=== PATIENT | female | born 1960 ===

== ENCOUNTER 2016-10-17 19:53 | Emergency (ER) | payer MEDICAID ==
[2016-10-17 20:06] VITALS: BP 142/76; PULSE 112; RESP 20; TEMP 97.8; O2SAT 98
[2016-10-17] MEDS ORDERED: Sodium Chloride 0.9% 1,000 ML IV STA (20:26)
--- NOTE | 2016-10-17 20:30 | ED PDOC ---
"HPI: Back Time Seen by Provider: 10/17/16 20:18 Chief Complaint (Nursing): Back Pain Chief Complaint (Provider): Back Pain History Per: Patient History/Exam Limitations: no limitations Onset/Duration Of Symptoms: Days (x1 week) Current Symptoms Are (Timing): Still Present Quality Of Discomfort: Other (w/radiation up towards neck, down towards b/l legs and around towards abdomen (right more than left)) Severity: Moderate Previous Symptoms: None Associated Symptoms: Other (dysuria (burning)) Additional Complaint(s): Jeanette Peguero is a 56 year old female, with a past medical history inclusive of HTN, hypercholesterolemia, diabetes, arthritis and chronic back pain, who presents to the ED on 10/17/16 for the evaluation of moderately exacerbated back pain that she has experienced x1 week. Pain, described as radiating up towards her neck, down towards her b/l legs and around towards her abdomen ( right side more than left), has been accompanied by some burning dysuria, though patient denies incontinence, recent trauma or heavy lifting. Has medicated with Advil without relief. PMD: [employer] Past Medical History Reviewed: Historical Data, Nursing Documentation, Vital Signs Vital Signs: Last Vital Signs Temp 97.8 F 10/17/16 20:05 Pulse 112 H 10/17/16 20:05 Resp 20 10/17/16 20:05 BP 142/76 10/17/16 20:05 Pulse Ox 98 10/17/16 20:05 - Medical History PMH: Arthritis, Asthma, Back Problems, Diabetes, HTN, Hypercholesterolemia, Hypothyroidism, Osteoporosis Denies: HIV, Chronic Kidney Disease - Surgical History Surgical History: Hernia Repair (ventral) - Family History Family History: States: Unknown Family Hx - Home Medications Home Medications: Ambulatory Orders Medication Instructions Recorded Aclidinium [place] [Tudorza 1 puff INH Q12 08/27/16 Pressair] Albuterol HFA [Ventolin HFA 90 2 puff INH Q4 PRN 08/27/16 mcg/actuation (8 g)] Alogliptin Roque/Metformin HCl 1 tab PO BID 08/27/16 [Alogliptin-Metformin 12.5-1000] Aspirin [Lo-Dose Aspirin EC] 81 mg PO DAILY 08/27/16 Cholecalciferol [Vitamin D 1000 IU] 50,000 iu PO QWK 08/27/16 Cilostazol [Pletal] 100 mg PO BID 08/27/16 DiphenhydrAMINE [Benadryl] 25 mg PO Q12 08/27/16 Fexofenadine HCl [Leyda NF] 180 mg PO QAM 08/27/16 Fluticasone/Salmeterol 500/50 1 puff INH BID 08/27/16 [Advair Diskus 500/50] Glimepiride [Amaryl] 4 mg pe PO BID 08/27/16 Levothyroxine [Synthroid] 100 mcg PO DAILY 08/27/16 Lisinopril/Hydrochlorothiazide 1 tab PO DAILY 08/27/16 [Lisinopril-Hctz 20-25 mg Tab] Lovastatin [Altoprev] 40 mg PO DAILY 08/27/16 Metoprolol Tartrate 25 mg PO DAILY 08/27/16 Montelukast Sodium [Singulair] 10 mg PO DAILY 08/27/16 Omeprazole 40 mg PO DAILY 08/27/16 Levalbuterol [Xopenex] 0.63 mg IH RQ8 #60 neb 09/01/16 guaiFENesin [Robitussin] 200 mg PO Q4 PRN #30 udc 09/01/16 predniSONE [predniSONE Tab] 20 mg PO Q12 #30 tab 09/01/16 Cyclobenzaprine [Cyclobenzaprine 10 mg PO BID #14 tab 10/17/16 HCl] Ibuprofen [Motrin] 400 mg PO Q6 #30 tab 10/17/16 - Allergies Allergies/Adverse Reactions: Allergies Allergy/AdvReac Type Severity Reaction Status Date / Time iodine Allergy RASH Verified 10/17/16 20:10 Penicillins Allergy RASH Verified 10/17/16 20:10 Review of Systems Musculoskeletal: Positive for: Back Pain (w/radiation to neck/bilateral legs and anteriorly towards abdomen) Physical Exam - Reviewed Nursing Documentation Reviewed: Yes Vital Signs Reviewed: Yes - Physical Exam Appears: Positive for: Non-toxic, No Acute Distress Head Exam: Positive for: ATRAUMATIC, NORMOCEPHALIC Skin: Positive for: Normal Color, Warm, Dry Eye Exam: Positive for: Normal appearance, PERRL Neck: Positive for: Normal, Painless ROM, Supple Cardiovascular/Chest: Positive for: Regular Rate, Rhythm. Negative for: Murmur Respiratory: Positive for: Normal Breath Sounds. Negative for: Respiratory Distress Gastrointestinal/Abdominal: Positive for: Normal Exam, Soft. Negative for: Tenderness Back: Positive for: L CVA Tenderness, R CVA Tenderness, Vertebral Tenderness ( midline sacral tenderness) Neurologic/Psych: Positive for: Alert, Oriented - Laboratory Results Urine POC: Negative Urine dip results: Positive for: Leukocyte Esterase, Protein - ECG O2 Sat by Pulse Oximetry: 98 Medical Decision Making Medical Decision Makin:18 Initial Impression: back pain, dysuria Initial Plan: * CT A/P w/o PO or IV contrast * Udip * Urinalysis * IV NS 1000ml at 1000mls/hr * Toradol 30mg IVP * Reevaluation * Ct scan:NAD FINDINGS: Anterior hernia mesh in the abdomen and pelvis. The liver, spleen, gallbladder and pancreas appear grossly normal on this non- contrast study. 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 No perinephric stranding. No hydronephrosis. No obstructing calculi. Pelvic phleboliths. Small hiatal hernia. Colonic diverticulosis. A normal appendix is identified axial images 92 through 107, coronal images 47 through 64. Hysterectomy. JEANETTE PEGUERO | Final Radiology Report CONFIDENTIALITY STATEMENT This report is intended only for use by the referring physician, and only in accordance with law. If you received this in error, call [phone]. Page 2 of 2 IMPRESSION: No acute findings. dx: MSK/sciatica tx: flexril/motrin plan: PTx and f/u wtih pmd with exercises. Scribe Attestation: Documented by Esthela Gann, acting as a scribe for Angela Tim PA-C. Provider Scribe Attestation: All medical record entries made by the Scribe were at my direction and personally dictated by me. I have reviewed the chart and agree that the record accurately reflects my personal performance of the history, physical exam, medical decision making, and the department course for this patient. I have also personally directed, reviewed, and agree with the discharge instructions and disposition. Disposition - Clinical Impression Clinical Impression: Back pain - Patient ED Disposition Is Patient to be Admitted: No Counseled Patient/Family Regarding: Studies Performed, Diagnosis, Need For Followup, Rx Given - Disposition Disposition: Routine/Home Disposition Time: 22:57 Condition: STABLE Prescriptions: Cyclobenzaprine [Cyclobenzaprine HCl] 10 mg PO BID #14 tab Ibuprofen [Motrin] 400 mg PO Q6 #30 tab Instructions: Sciatica (ED), Back Exercises (ED) Print Language: CZECH"
[2016-10-17 21:17] LABS: RBC URINE 2 /hpf (0-3); URINE BACTERIA RARE (<OCC); URINE BILIRUBIN NEGATIVE (NEGATIVE); URINE BLOOD NEGATIVE (NEGATIVE); URINE COLOR YELLOW (YELLOW); URINE GLUCOSE (UA) 150 mg/dL (Normal); URINE KETONE NEGATIVE (NEGATIVE); URINE PROTEIN NEGATIVE (NEGATIVE); URINE UROBILINOGEN 0.2-1.0 mg/dL (0.2-1.0); WBC URINE 6 /hpf (0-5)
[2016-10-17 21:27] LABS: URINE LEUKOCYTE ESTERASE MOD Leu/uL (Negative)
--- NOTE | 2016-10-17 22:46 | CT ---
EXAM: CT Abdomen and Pelvis Without Intravenous Contrast. CLINICAL HISTORY: 56 years old, female; Pain; Abdominal pain; Flank; Right; Prior surgery; Surgery date: 6+ months; Surgery type: Hysterectomy. Hernia surgery; Additional info: CVA tenderness TECHNIQUE: Axial computed tomography images of the abdomen and pelvis without intravenous contrast. This CT exam was performed using one or more of the following dose reduction techniques: automated exposure control, adjustment of the mA and/or kV according to patient size, and/or use of iterative reconstruction technique. Coronal and sagittal reformatted images were created and reviewed. EXAM DATE/TIME: 10/17/2016 8:40 PM COMPARISON: CT - ABD PELVIS W/O PO OR IV CONT 09/13/2014 1:18:03 PM FINDINGS: Anterior hernia mesh in the abdomen and pelvis. The liver, spleen, gallbladder and pancreas appear grossly normal on this non-contrast study. 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 No perinephric stranding. No hydronephrosis. No obstructing calculi. Pelvic phleboliths. Small hiatal hernia. Colonic diverticulosis. A normal appendix is identified axial images 92 through 107, coronal images 47 through 64. Hysterectomy. IMPRESSION: No acute findings.
== END 2016-10-17 23:24 | disposition home or self-care (01) ==
LOC: H.ER 19:53
DX: R10.9 Unspecified abdominal pain (principal); M54.9 Dorsalgia, unspecified

== ENCOUNTER 2016-12-03 10:26 | Emergency (ER) | payer MEDICARE, MEDICAID ==
[2016-12-03 10:33] VITALS: RESP 18; O2SAT 97; BMI 40.8
[2016-12-03 11:05] LABS: BASO # 0.1 K/uL (0.0-0.2); BASO % 0.8 % (0.0-2.0); EOS # 0.4 K/uL (0.0-0.7); EOS % 4.2 % (0.0-4.0); HEMATOCRIT 35.7 % (34.0-47.0); LYMPH # 2.4 K/uL (1.0-4.3); LYMPH % 28.4 % (20.0-40.0); MEAN CORPUSCULAR HEMOGLOBIN 28.1 pg (27.0-31.0); MEAN PLATELET VOLUME 10.1 fl (7.2-11.7); MONO # 0.4 K/uL (0.0-0.8); MONO % 5.1 % (0.0-10.0); NEUT # 5.3 K/uL (1.8-7.0); NEUT % 61.5 % (50.0-75.0); NRBC % 0.1 % (0.0-0.0); RED CELL DISTRIBUTION WIDTH 14.8 % (11.5-14.5); WHITE BLOOD COUNT 8.5 K/uL (4.8-10.8)
[2016-12-03 11:07] VITALS: TEMP 98
[2016-12-03 11:19] LABS: RBC URINE 1 /hpf (0-3); URINE BACTERIA RARE (<OCC); URINE BILIRUBIN NEGATIVE (NEGATIVE); URINE BLOOD NEGATIVE (NEGATIVE); URINE COLOR YELLOW (YELLOW); URINE GLUCOSE (UA) >=500 mg/dL (Normal); URINE KETONE NEGATIVE (NEGATIVE); URINE LEUKOCYTE ESTERASE SMALL Leu/uL (Negative); URINE PROTEIN NEGATIVE (NEGATIVE); URINE UROBILINOGEN 0.2-1.0 mg/dL (0.2-1.0); WBC URINE 3 /hpf (0-5)
[2016-12-03 11:48] LABS: ALB/GLOB RATIO 1.2 (1.0-2.1); BILIRUBIN,TOTAL 0.3 mg/dl (0.2-1.3); CALCIUM 9.8 mg/dL (8.4-10.2); POTASSIUM 4.6 MMOL/L (3.6-5.0); TOTAL PROTEIN 8.2 G/DL (6.3-8.2)
[2016-12-03] MEDS ORDERED: Sodium Chloride 0.9% 1,000 ML IV STA (11:55)
--- NOTE | 2016-12-03 12:30 | CT ---
PROCEDURE: CT Abdomen and Pelvis without intravenous contrast HISTORY: mid abd pain obstipation distension vomiting COMPARISON: None. TECHNIQUE: Unenhanced study. Neither oral nor intravenous contrast administered. Radiation dose: Total exam DLP = 1007.22 mGy-cm. This CT exam was performed using one or more of the following dose reduction techniques: Automated exposure control, adjustment of the mA and/or kV according to patient size, and/or use of iterative reconstruction technique. FINDINGS: LOWER THORAX: Unremarkable. LIVER: Hepatic steatosis. No focal masses. No intrahepatic bile duct dilatation or perihepatic ascites. GALLBLADDER AND BILE DUCTS: Unremarkable. PANCREAS: Unremarkable. No gross lesion or ductal dilatation. SPLEEN: Unremarkable. ADRENALS: Unremarkable. No mass. KIDNEYS AND URETERS: Unremarkable. No hydronephrosis. No solid mass. Incidental finding(s): Left main renal artery aneurysm. VASCULATURE: Unremarkable. No aortic aneurysm. BOWEL: Constipation without fecal impaction or obstruction. Diverticulosis without an acute inflammatory component or other associated pathologic process. APPENDIX: Unremarkable. Normal appendix. PERITONEUM: Unremarkable. No free fluid. No free air. LYMPH NODES: Unremarkable. No enlarged lymph nodes. BLADDER: Unremarkable. REPRODUCTIVE: Unremarkable. BONES: No acute fracture. OTHER FINDINGS: Stable position of anterior abdominal wall mesh. IMPRESSION: No acute findings related to/accounting for the clinical presentation. Additional benign and/or incidental findings described above. No significant interval change compared to the prior examination(s).
--- NOTE | 2016-12-03 13:53 | ED PDOC ---
HPI: Abdomen Time Seen by Provider: 12/03/16 10:36 Chief Complaint (Nursing): Abdominal Pain Chief Complaint (Provider): abdominal pain History Per: Patient History/Exam Limitations: no limitations Onset/Duration Of Symptoms: Days (7), Intermittent Episodes Current Symptoms Are (Timing): Intermittent Episodes Severity: None Location Of Pain/Discomfort: Diffuse Quality Of Discomfort: Sharp, Cramping Associated Symptoms: Nausea, Loss Of Appetite, Constipation. denies: Vomiting, Diarrhea, Back Pain, Urinary Symptoms Exacerbating Factors: None Alleviating Factors: None Last Bowel Movement: Today (small) Additional Complaint(s): 56yo female c/o mid and lower abd pain radiating to epigastrum associated w nausea and constipation. She used an enema yesterday w minimal relief. Has had intermittent abd pain for many months. Denies fever, weakness or urinary symptoms. Thinks she had colonoscopy 10 years ago, unknown results, had endoscopy scheduled but was cancelled. Abnormal Vaginal Bleeding: No Past Medical History Reviewed: Historical Data, Nursing Documentation, Vital Signs Vital Signs: Last Vital Signs Temp 98 F 12/03/16 11:00 Pulse 76 12/03/16 11:00 Resp 18 12/03/16 11:00 BP 131/69 12/03/16 11:00 Pulse Ox 97 12/03/16 11:00 - Medical History PMH: Arthritis, Asthma, Back Problems, Diabetes, HTN, Hypercholesterolemia, Hypothyroidism, Osteoporosis Denies: HIV, Chronic Kidney Disease - Surgical History Surgical History: Hernia Repair (ventral) Other surgeries: bladder sx - Family History Family History: States: Unknown Family Hx - Living Arrangements Living Arrangements: With Family - Social History Current smoker - smoking cessation education provided: No - Home Medications Home Medications: Ambulatory Orders Medication Instructions Recorded Aclidinium [place] [Tudorza 1 puff INH Q12 08/27/16 Pressair] Albuterol HFA [Ventolin HFA 90 2 puff INH Q4 PRN 08/27/16 mcg/actuation (8 g)] Alogliptin Roque/Metformin HCl 1 tab PO BID 08/27/16 [Alogliptin-Metformin 12.5-1000] Aspirin [Lo-Dose Aspirin EC] 81 mg PO DAILY 08/27/16 Cholecalciferol [Vitamin D 1000 IU] 50,000 iu PO QWK 08/27/16 Cilostazol [Pletal] 100 mg PO BID 08/27/16 DiphenhydrAMINE [Benadryl] 25 mg PO Q12 08/27/16 Fexofenadine HCl [Leyda NF] 180 mg PO QAM 08/27/16 Fluticasone/Salmeterol 500/50 1 puff INH BID 08/27/16 [Advair Diskus 500/50] Glimepiride [Amaryl] 4 mg pe PO BID 08/27/16 Levothyroxine [Synthroid] 100 mcg PO DAILY 08/27/16 Lisinopril/Hydrochlorothiazide 1 tab PO DAILY 08/27/16 [Lisinopril-Hctz 20-25 mg Tab] Lovastatin [Altoprev] 40 mg PO DAILY 08/27/16 Metoprolol Tartrate 25 mg PO DAILY 08/27/16 Montelukast Sodium [Singulair] 10 mg PO DAILY 08/27/16 Omeprazole 40 mg PO DAILY 08/27/16 Levalbuterol [Xopenex] 0.63 mg IH RQ8 #60 neb 09/01/16 guaiFENesin [Robitussin] 200 mg PO Q4 PRN #30 udc 09/01/16 predniSONE [predniSONE Tab] 20 mg PO Q12 #30 tab 09/01/16 Cyclobenzaprine [Cyclobenzaprine 10 mg PO BID #14 tab 10/17/16 HCl] Ibuprofen [Motrin] 400 mg PO Q6 #30 tab 10/17/16 - Allergies Allergies/Adverse Reactions: Allergies Allergy/AdvReac Type Severity Reaction Status Date / Time iodine Allergy RASH Verified 10/17/16 20:10 Penicillins Allergy RASH Verified 10/17/16 20:10 Review of Systems ROS Statement: Except As Marked, All Systems Reviewed And Found Negative Constitutional: Negative for: Fever ENT: Negative for: Ear Pain Cardiovascular: Negative for: Chest Pain, Palpitations Gastrointestinal: Positive for: Abdominal Pain, Constipation. Negative for: Nausea, Vomiting Genitourinary Female: Negative for: Dysuria Musculoskeletal: Negative for: Neck Pain, Back Pain, Leg Pain Skin: Negative for: Rash, Lesions Neurological: Negative for: Weakness, Numbness, Dizziness Physical Exam - Reviewed Nursing Documentation Reviewed: Yes - Physical Exam Appears: Positive for: Well, Non-toxic, No Acute Distress Head Exam: Positive for: ATRAUMATIC, NORMAL INSPECTION, NORMOCEPHALIC Skin: Positive for: Normal Color, Warm, DRY Eye Exam: Positive for: EOMI, Normal appearance, PERRL ENT: Positive for: Normal ENT Inspection Neck: Positive for: Normal, Painless ROM Cardiovascular/Chest: Positive for: Regular Rate, Rhythm Respiratory: Positive for: CNT, Normal Breath Sounds Gastrointestinal/Abdominal: Positive for: Bowel Sounds, Soft, Tenderness (mild diffuse tenderness) Back: Positive for: Normal Inspection Extremity: Positive for: Normal ROM Neurologic/Psych: Positive for: Alert, Oriented - Laboratory Results Result Diagrams: 12/03/16 11:00 12/03/16 11:00 - ECG O2 Sat by Pulse Oximetry: 97 Medical Decision Making Medical Decision Making: workup initiated for abd pain w labwork and CT abd pelv r.o obstruction, colitis , malignancy given history. - labs reviewed and clinically unremarkable CT imaging report reviewed. Accession No. : [id number] Patient Name / ID : SUDHIR HOLBROOK / [id number] Exam Date : 12/03/2016 12:01:44 ( Approved ) Study Comment : Sex / Age : F / 56Y Creator : Clifford Pal MD Dictator : Clifford Pal MD Buffing Line Set Up Worker : Chancery Clerk : Clifford Pal MD Approver2 : Report Date : 12/03/2016 12:28:53 My Comment : PROCEDURE: CT Abdomen and Pelvis without intravenous contrast HISTORY: mid abd pain obstipation distension vomiting COMPARISON: None. TECHNIQUE: Unenhanced study. Neither oral nor intravenous contrast administered. Radiation dose: Total exam DLP = 1007.22 mGy-cm. This CT exam was performed using one or more of the following dose reduction techniques: Automated exposure control, adjustment of the mA and/or kV according to patient size, and/or use of iterative reconstruction technique. FINDINGS: LOWER THORAX: Unremarkable. LIVER: Hepatic steatosis. No focal masses. No intrahepatic bile duct dilatation or perihepatic ascites. GALLBLADDER AND BILE DUCTS: Unremarkable. PANCREAS: Unremarkable. No gross lesion or ductal dilatation. SPLEEN: Unremarkable. ADRENALS: Unremarkable. No mass. KIDNEYS AND URETERS: Unremarkable. No hydronephrosis. No solid mass. Incidental finding(s): Left main renal artery aneurysm. VASCULATURE: Unremarkable. No aortic aneurysm. BOWEL: Constipation without fecal impaction or obstruction. Diverticulosis without an acute inflammatory component or other associated pathologic process. APPENDIX: Unremarkable. Normal appendix. PERITONEUM: Unremarkable. No free fluid. No free air. LYMPH NODES: Unremarkable. No enlarged lymph nodes. BLADDER: Unremarkable. REPRODUCTIVE: Unremarkable. BONES: No acute fracture. OTHER FINDINGS: Stable position of anterior abdominal wall mesh. IMPRESSION: No acute findings related to/accounting for the clinical presentation. Additional benign and/or incidental findings described above. No significant interval change compared to the prior examination(s). ------- DC w cathartics and mandatory followup GI Pt improved in ED, no vomiting, pain mostly resolved. Disposition - Clinical Impression Clinical Impression: Abdominal pain, Constipation - Patient ED Disposition Is Patient to be Admitted: No Counseled Patient/Family Regarding: Studies Performed, Diagnosis, Need For Followup, Rx Given - Disposition Referrals: Papito Hong MD, PhD [Staff Provider] - Disposition: Routine/Home Disposition Time: 14:02 Additional Instructions: Take medications as directed. See GI doctor as directed for further testing.
[2016-12-03 15:03] VITALS: BP 128/70; PULSE 70
== END 2016-12-03 15:00 | disposition home or self-care (01) ==
LOC: H.ER 10:26
DX: R10.9 Unspecified abdominal pain (principal); K59.00 Constipation, unspecified; R11.10 Vomiting, unspecified
CPT/HCPCS: 74176; 80053; 81003; 83690; 85025; 96374; 96375; 99283; J1885; J2405; J7040

== ENCOUNTER 2017-03-21 05:51 | Emergency (ER) | payer MEDICARE, OTHER ==
[2017-03-21 05:51] VITALS: BMI 40.8
[2017-03-21 06:12] VITALS: BP 160/92; PULSE 88; RESP 18; TEMP 98.5; O2SAT 98
--- NOTE | 2017-03-21 06:35 | ED PDOC ---
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 Pain is rated 10/10; is worse with movement of the hand, forearm, or shoulder; and was not relieved with Tylenol #3 that she had on hand from a dental procedure. Pain is located in the hand, wrist, and elbow; and radiates into the left chest and back. No fever, chilld, nausea, vomiting, diaphoresis, or shortness of breath. No other complaints at this time. Past Medical History Vital Signs: Last Vital Signs Temp 98.5 F 03/21/17 06:08 Pulse 88 03/21/17 06:08 Resp 18 03/21/17 06:08 BP 160/92 H 03/21/17 06:08 Pulse Ox 98 03/21/17 06:08 - Medical History PMH: Arthritis, Asthma, Back Problems, Diabetes, HTN, Hypercholesterolemia, Hyperthyroidism, Hypothyroidism, Osteoporosis, Sleep Apnea (USES C-PAP OCCASSIONALLY) Denies: Colonic Polyps, Fractures, HIV, Chronic Kidney Disease, TIA - Surgical History Surgical History: No Surg Hx, Hernia Repair (ventral) Denies: Endoscopy - Family History Family History: States: Unknown Family Hx - Social History Current smoker - smoking cessation education provided: No Ex-Smoker (has not smoked in the last 12 months): No Alcohol: None Drugs: Denies - Home Medications Home Medications: Ambulatory Orders Medication Instructions Recorded Aclidinium [place] [Tudorza 1 puff INH Q12 08/27/16 Pressair] Albuterol HFA [Ventolin HFA 90 2 puff INH Q4 PRN 08/27/16 mcg/actuation (8 g)] Aspirin [Lo-Dose Aspirin EC] 81 mg PO DAILY 08/27/16 Cilostazol [Pletal] 100 mg PO BID 08/27/16 DiphenhydrAMINE [Benadryl] 25 mg PO Q12 08/27/16 Glimepiride [Amaryl] 4 mg pe PO BID 08/27/16 Lisinopril/Hydrochlorothiazide 1 tab PO DAILY 08/27/16 [Lisinopril-Hctz 20-25 mg Tab] Lovastatin [Altoprev] 40 mg PO DAILY 08/27/16 Metoprolol Tartrate 25 mg PO DAILY 08/27/16 Montelukast Sodium [Singulair] 10 mg PO DAILY 08/27/16 Omeprazole 40 mg PO DAILY 08/27/16 Levalbuterol [Xopenex] 0.63 mg IH RQ8 #60 neb 09/01/16 Dicyclomine [Dicyclomine HCl] 10 mg PO TID PRN #12 12/03/16 Azithromycin 250 mg PO DAILY 01/22/17 Clotrimazole 1% [Lotrimin AF 1%] 1 appl TOP BID 01/22/17 Clotrimazole/Betamethasone 1 appl TOP BID 01/22/17 [Lotrisone] Empagliflozin [Jardiance] 25 mg PO DAILY 01/22/17 Ergocalciferol (Vitamin D2) 50,000 iu PO QWK 01/22/17 [Vitamin D2] Insulin Glargine, Recombina 10 unit SUBCUT BID 01/22/17 [Lantus] Ketoconazole 2% Cr [Nizoral] 1 appl TOP BID 01/22/17 MetFORMIN [glucoPHAGE] 1,000 mg PO BID 01/22/17 Metoclopramide [Reglan] 5 mg PO TID 01/22/17 Naproxen [Naprosyn] 500 mg PO Q12H #20 tab 03/21/17 traMADol [Ultram] 50 mg PO Q8 #10 tab 03/21/17 - Allergies Allergies/Adverse Reactions: Allergies Allergy/AdvReac Type Severity Reaction Status Date / Time iodine Allergy RASH Verified 01/22/17 07:40 Penicillins Allergy RASH Verified 01/22/17 07:40 Review of Systems ROS Statement: Except As Marked, All Systems Reviewed And Found Negative Cardiovascular: Positive for: Chest Pain Musculoskeletal: Positive for: Arm Pain, Back Pain Physical Exam - Reviewed Nursing Documentation Reviewed: Yes Vital Signs Reviewed: Yes - Physical Exam Appears: Positive for: Non-toxic, Uncomfortable Head Exam: Positive for: ATRAUMATIC, NORMAL INSPECTION, NORMOCEPHALIC Skin: Positive for: Normal Color, Warm, DRY Eye Exam: Positive for: EOMI, Normal appearance, PERRL ENT: Positive for: Normal ENT Inspection Neck: Positive for: Normal, Painless ROM Cardiovascular/Chest: Positive for: Regular Rate, Rhythm Respiratory: Positive for: CNT, Normal Breath Sounds Pulses-Radial (L): 2+ Pulses-Radial (R): 2+ Gastrointestinal/Abdominal: Positive for: Normal Exam, Bowel Sounds, Soft Back: Positive for: Normal Inspection Extremity: Positive for: Normal ROM, Tenderness (exquisite tenderness at the left hand, wrist and elbow), Capillary Refill (less than 2 seconds). Negative for: Deformity Neurologic/Psych: Positive for: Alert, Oriented - Laboratory Results Result Diagrams: 03/21/17 06:56 03/21/17 06:56 - ECG O2 Sat by Pulse Oximetry: 98 (RA) Pulse Ox Interpretation: Normal Medical Decision Making Medical Decision Making: Impression: 57 y/o female with known history of HTN, DM, and Neuropathy here with left upper extremity pain. Plan: - Labs - EKG - XR - IV Morphine trial 07:00: patient signed out to Dr. Munson pending results and disposition. Scribe Attestation Documented by Malaika Leung acting as a scribe for Ahsan Forde MD. Provider Attestation: All medical record entries made by the Scribe were at my direction and personally dictated by me. I have reviewed the chart and agree that the record accurately reflects my personal performance of the history, physical exam, medical decision making, and the department course for this patient. I have also personally directed, reviewed, and agree with the discharge instructions and disposition. Disposition - Clinical Impression Clinical Impression: Arm pain - Disposition Referrals: [facility] [Outside] Disposition: Transfer of Care Disposition Time: 07:00 Condition: FAIR Prescriptions: Naproxen [Naprosyn] 500 mg PO Q12H #20 tab traMADol [Ultram] 50 mg PO Q8 #10 tab Instructions: Arm Pain (ED) Forms: [employer] (Macedonian) Patient Signed Over To: Ravi Munson
[2017-03-21 07:06] LABS: BASO # 0.1 K/uL (0.0-0.2); BASO % 0.6 % (0.0-2.0); EOS # 0.2 K/uL (0.0-0.7); EOS % 2.7 % (0.0-4.0); HEMATOCRIT 35.8 % (34.0-47.0); LYMPH # 2.4 K/uL (1.0-4.3); LYMPH % 26.2 % (20.0-40.0); MEAN CELL VOLUME 87.1 fl (81.0-99.0); MEAN CORPUSCULAR HEMOGLOBIN 28.7 pg (27.0-31.0); MEAN PLATELET VOLUME 9.6 fl (7.2-11.7); MONO # 0.7 K/uL (0.0-0.8); MONO % 7.1 % (0.0-10.0); NEUT # 5.9 K/uL (1.8-7.0); NEUT % 63.4 % (50.0-75.0); NRBC % 0.1 % (0.0-0.0); RED CELL DISTRIBUTION WIDTH 15.5 % (11.5-14.5); WHITE BLOOD COUNT 9.3 K/uL (4.8-10.8)
[2017-03-21 07:15] LABS: ALB/GLOB RATIO 1.3 (1.0-2.1); ALKALINE PHOSPHATASE 64 U/L (38-126); ALT/SGPT 21 U/L (9-52); AST/SGOT 17 U/L (14-36); BILIRUBIN,TOTAL 0.4 mg/dl (0.2-1.3); BLOOD UREA NITROGEN 18 mg/dl (7-17); CALCIUM 9.8 mg/dL (8.4-10.2); CARBON DIOXIDE 27 mmol/L (22-30); CHLORIDE 100 mmol/L (98-107); GFR AFRICAN-AMERICAN > 60; GLUCOSE,RANDOM 273 mg/dL (65-105); POTASSIUM 4.6 MMOL/L (3.6-5.0); SODIUM 137 mmol/l (132-148); TOTAL PROTEIN 7.8 G/DL (6.3-8.2)
[2017-03-21 07:16] LABS: PARTIAL THROMBOPLASTIN TIME 30.1 Seconds (25.6-37.1)
--- NOTE | 2017-03-21 07:41 | ED PDOC ---
- Laboratory Results Result Diagrams: 03/21/17 06:56 03/21/17 06:56 - ECG O2 Sat by Pulse Oximetry: 98 (RA) Pulse Ox Interpretation: Normal Medical Decision Making Medical Decision Making: Time: 07:00 --Patient endorsed from Dr. Forde to me. --Pending results, reassessment, and disposition. Scribe Attestation: Documented by Hannah Aguilar, acting as a scribe for Ravi Munson MD. Provider Scribe Attestation: All medical record entries made by the Scribe were at my direction and personally dictated by me. I have reviewed the chart and agree that the record accurately reflects my personal performance of the history, physical exam, medical decision making, and the department course for this patient. I have also personally directed, reviewed, and agree with the discharge instructions and disposition. Disposition - Clinical Impression Clinical Impression: Arm pain - POA Present On Arrival: None - Disposition Referrals: [facility] [Outside] Disposition: Routine/Home Disposition Time: 07:50 Condition: FAIR Prescriptions: Naproxen [Naprosyn] 500 mg PO Q12H #20 tab traMADol [Ultram] 50 mg PO Q8 #10 tab Instructions: Arm Pain (ED) Forms: [employer] (Frisian)
--- NOTE | 2017-03-21 08:48 | RAD ---
HISTORY: COMPARISON: 08/27/2016 TECHNIQUE: Chest PA and lateral FINDINGS: LINES AND TUBES: None. LUNG AND PLEURA: The lungs are well inflated. There is bibasilar atelectasis. No focal consolidation. HEART AND MEDIASTINUM: The heart is not enlarged. The hilar and mediastinal contours are within normal limits. SKELETAL STRUCTURES: The bony structures are within normal limits for the patient's age. VISUALIZED UPPER ABDOMEN: Normal. OTHER FINDINGS: None. IMPRESSION: No active pulmonary disease.
--- NOTE | 2017-03-21 09:20 | RAD ---
PROCEDURE: Radiographs of the Left Shoulder HISTORY: Pain COMPARISON: No prior. FINDINGS: BONES: There is no acute displaced fracture or bone destruction. Bone alignment and mineralization are normal. JOINTS: There is mild degenerative osteoarthrosis in the glenohumeral joint. The acromioclavicular joint is normal. SOFT TISSUES: There are discrete calcifications lateral to the humeral head. OTHER FINDINGS: None. IMPRESSION: 1. Calcific tendinitis. 2. Mild degenerative osteoarthrosis in the glenohumeral joint
--- NOTE | 2017-03-21 09:22 | RAD ---
PROCEDURE: Radiographs of the Left Forearm HISTORY: pain COMPARISON: None available. TECHNIQUE: Frontal and lateral views obtained. FINDINGS: BONES: No acute fracture or destructive lesion. JOINT SPACES: Unremarkable. OTHER FINDINGS: None. IMPRESSION: No acute fracture or dislocation.
--- NOTE | 2017-03-21 09:26 | RAD ---
PROCEDURE: Radiographs of the left elbow. HISTORY: pain COMPARISON: No prior. FINDINGS: BONES: Bone alignment and mineralization are normal. There are small or ossific densities in the proximal radius. JOINTS: Normal. No osteoarthritis. SOFT TISSUES: Normal. JOINT EFFUSION: None. OTHER FINDINGS: None IMPRESSION: Small ossific densities in the proximal radius could represent avulsion fracture. Please correlate with point tenderness.
--- NOTE | 2017-03-23 11:10 | CARD ---
APPROVED REPORT EKG Measurement Heart [id number] <Conclusion> Sinus rhythm with marked sinus arrhythmia Low voltage QRS Borderline ECG
== END 2017-03-21 08:07 | disposition home or self-care (01) ==
LOC: H.ER 05:51
DX: M79.602 Pain in left arm (principal); M19.012 Primary osteoarthritis, left shoulder; E05.90 Thyrotoxicosis, unspecified without thyrotoxic crisis or storm; E11.40 Type 2 diabetes mellitus with diabetic neuropathy, unspecified; I10 Essential (primary) hypertension; Z79.4 Long term (current) use of insulin; Z79.82 Long term (current) use of aspirin; Z79.84 Long term (current) use of oral hypoglycemic drugs; Z88.0 Allergy status to penicillin
CPT/HCPCS: 71020; 73030; 73070; 73090; 80053; 82948; 84484; 85025; 85610; 85730; 93005; 96374; 99284; J2270

== ENCOUNTER 2017-07-01 17:00 | Emergency (ER) | payer MEDICARE, OTHER ==
[2017-07-01 17:00] VITALS: BMI 40.8
[2017-07-01 17:06] VITALS: RESP 24
[2017-07-01 17:08] VITALS: BP 119/61; PULSE 97; TEMP 97.6; O2SAT 98
--- NOTE | 2017-07-01 17:46 | ED PDOC ---
HPI: SOB/CHF/COPD Time Seen by Provider: 07/01/17 17:10 Chief Complaint (Nursing): Shortness Of Breath Chief Complaint (Provider): shortness of breath History Per: Patient Additional Complaint(s): 57-year-old female with history of asthma presents to emergency department with shortness of breath and cough that started yesterday. Patient was seen earlier today by primary doctor, Dr. De Anda and he sent patient to ER for further evaluation. Patient states that albuterol pump has not helped her symptoms. She has chills and body aches as well. Denies recent travel or known sick contacts. Past Medical History Reviewed: Historical Data, Nursing Documentation, Vital Signs Vital Signs: Last Vital Signs Temp 97.6 F 07/01/17 17:07 Pulse 97 H 07/01/17 17:07 Resp 24 07/01/17 17:07 BP 119/61 07/01/17 17:07 Pulse Ox 98 07/01/17 17:48 - Medical History PMH: Arthritis, Asthma, Back Problems, Diabetes, HTN, Hypercholesterolemia, Hypothyroidism, Osteoporosis, Sleep Apnea (USES C-PAP OCCASSIONALLY) - Surgical History Surgical History: Hernia Repair (ventral) Other surgeries: bladder suspension, tubal ligation, oral surgery, cyst removal from left jaw region - Family History Family History: States: No Known Family Hx - Living Arrangements Living Arrangements: With Family - Social History Current smoker - smoking cessation education provided: No Alcohol: Occasional Drugs: Denies - Home Medications Home Medications: Ambulatory Orders Medication Instructions Recorded Aclidinium [place] [Tudorza 1 puff INH Q12 08/27/16 Pressair] Albuterol HFA [Ventolin HFA 90 2 puff INH Q4 PRN 08/27/16 mcg/actuation (8 g)] Aspirin [Lo-Dose Aspirin EC] 81 mg PO DAILY 08/27/16 Cilostazol [Pletal] 100 mg PO BID 08/27/16 DiphenhydrAMINE [Benadryl] 25 mg PO Q12 08/27/16 Glimepiride [Amaryl] 4 mg pe PO BID 08/27/16 Lisinopril/Hydrochlorothiazide 1 tab PO DAILY 08/27/16 [Lisinopril-Hctz 20-25 mg Tab] Lovastatin [Altoprev] 40 mg PO DAILY 02/01/17 Metoprolol Tartrate 25 mg PO DAILY 08/27/16 Montelukast Sodium [Singulair] 10 mg PO DAILY 08/27/16 Omeprazole 40 mg PO DAILY 08/27/16 Levalbuterol [Xopenex] 0.63 mg IH RQ8 #60 neb 09/01/16 Dicyclomine [Dicyclomine HCl] 10 mg PO TID PRN #12 12/03/16 Azithromycin 250 mg PO DAILY 01/22/17 Clotrimazole 1% [Lotrimin AF 1%] 1 appl TOP BID 01/22/17 Clotrimazole/Betamethasone 1 appl TOP BID 01/22/17 [Lotrisone] Empagliflozin [Jardiance] 25 mg PO DAILY 01/22/17 Ergocalciferol (Vitamin D2) 50,000 iu PO QWK 01/22/17 [Vitamin D2] Insulin Glargine, Recombina 10 unit SUBCUT BID 01/22/17 [Lantus] Ketoconazole 2% Cr [Nizoral] 1 appl TOP BID 01/22/17 MetFORMIN [glucoPHAGE] 1,000 mg PO BID 01/22/17 Metoclopramide [Reglan] 5 mg PO TID 01/22/17 Naproxen [Naprosyn] 500 mg PO Q12H #20 tab 03/21/17 traMADol [Ultram] 50 mg PO Q8 #10 tab 03/21/17 Albuterol HFA [Ventolin HFA 90 1 puff IH Q6 PRN #1 inhaler 07/01/17 mcg/actuation (8 g)] Azithromycin [Zithromax] 250 mg PO DAILY #6 tab 07/01/17 Benzonatate 200 mg PO TID PRN #20 capsule 07/01/17 predniSONE [Prednisone] 20 mg PO BID #10 tab 07/01/17 - Allergies Allergies/Adverse Reactions: Allergies Allergy/AdvReac Type Severity Reaction Status Date / Time iodine Allergy RASH Verified 01/22/17 07:40 Penicillins Allergy RASH Verified 01/22/17 07:40 Curb-65 Severity Score - CURB-65 Severity Score Confusion: No Bun >19mg/dl (>7mmol/L): Yes Respiratory Rate greater than/equal to 30: No Systolic BP <90 or Diastolic BP less than/equal 60mmHg: No Age >64: No Curb-65 Score: 1 Percentage 30-day mortality: 2.7% Wells Criteria for PE - Wells Criteria for Pulmonary Embolism Clinical Signs and Symptoms of DVT: No P.E is #1 Diagnosis, or Equally Likely: No Heart Rate >100: No Immobilization at least 3 days;Surgery previous 4 weeks: No Previous, objectively diagnosed PE or DVT: No Hemoptysis: No Malignancy w/treatment within 6 months, or palliative: No Total Score: 0 Review of Systems ROS Statement: Except As Marked, All Systems Reviewed And Found Negative Constitutional: Positive for: Other (body aches). Negative for: Fever, Chills Cardiovascular: Positive for: Chest Pain (from cough) Respiratory: Positive for: Cough, Shortness of Breath, SOB with Exertion, Wheezing. Negative for: Hemoptysis, Sputum Gastrointestinal: Negative for: Nausea, Vomiting Physical Exam - Reviewed Nursing Documentation Reviewed: Yes Vital Signs Reviewed: Yes - Physical Exam Appears: Positive for: Well, Non-toxic, No Acute Distress Skin: Negative for: Rash Eye Exam: Positive for: Normal appearance Cardiovascular/Chest: Positive for: Regular Rate, Rhythm Respiratory: Positive for: Wheezing. Negative for: Rhonchi, Respiratory Distress Back: Negative for: L CVA Tenderness, R CVA Tenderness Extremity: Positive for: Normal ROM. Negative for: Pedal Edema Neurologic/Psych: Positive for: Alert, Oriented - Laboratory Results Result Diagrams: 07/01/17 18:29 07/01/17 18:29 - ECG O2 Sat by Pulse Oximetry: 98 Pulse Ox Interpretation: Normal - Other Rad CXR X-Ray: Interpreted by Me, Viewed By Me X-Ray Interpretation: no acute finding Nebulizer Treatments/Peak Flow - Duonebs Number of Bronchodilator Doses given?: 3 (duoneb) - Pre/Post Peak Flow Pre Treatment Peak Flow: 350 Post treatment Peak Flow: 370 - Steroid Treatment Steroid: IV (125 mg IV solumedrol) - Clinical Response Clinical Response: Improved Medical Decision Making Medical Decision Makin57 year old with asthma symptoms Plan: CBC CMP Trop CXR IV solumedrol Duoneb x 3 EKG Patient feels much better after meds given in ED. Call placed to PMD, Dr. De Anda x 3, no answer or call back received. Patient would like to go home. Prescription is given for albuterol, Zithromax, Tessalon Perles and prednisone. Patient was instructed to follow up in 1-2 days with primary care doctor. Disposition - Clinical Impression Clinical Impression: Asthma exacerbation - Patient ED Disposition Is Patient to be Admitted: No Counseled Patient/Family Regarding: Studies Performed, Diagnosis, Need For Followup, Rx Given - Disposition Referrals: Grupo De Anda MD [Family Provider] - Disposition: Routine/Home Disposition Time: 19:35 Condition: STABLE Additional Instructions: Take prescription medications as directed. Follow up in 1-2 days with primary care doctor. Prescriptions: Albuterol HFA [Ventolin HFA 90 mcg/actuation (8 g)] 1 puff IH Q6 PRN #1 inhaler PRN Reason: Cough Azithromycin [Zithromax] 250 mg PO DAILY #6 tab Benzonatate 200 mg PO TID PRN #20 capsule PRN Reason: Cough predniSONE [Prednisone] 20 mg PO BID #10 tab Instructions: Asthma (ED) Forms: [employer] (Chinese) Results - Lab Results Lab Results: 07/01/17 07/01/17 07/01/17 18:29 18:29 18:29 WBC 9.3 RBC 4.31 Hgb 12.4 Hct 38.1 MCV 88.3 MCH 28.7 MCHC 32.5 L RDW 14.9 H Plt Count 246 MPV 10.1 Neut % (Auto) 67.8 Lymph % (Auto) 23.1 Mcculloch % (Auto) 5.4 Eos % (Auto) 2.8 Baso % (Auto) 0.9 Neut # 6.3 Lymph # 2.1 [place]ulloch # 0.5 Eos # 0.3 Baso # 0.1 Sodium 141 Potassium 4.2 Chloride 104 Carbon Dioxide 24 Anion Gap 17 BUN 27 H Creatinine 1.2 Est GFR ( Amer) 56 Est GFR (Non-Af Amer) 46 Random Glucose 134 H Calcium 9.5 Total Bilirubin 0.5 AST 21 ALT 25 Alkaline Phosphatase 58 Troponin I < 0.0120 Total Protein 8.0 Albumin 4.3 Globulin 3.7 Albumin/Globulin Ratio 1.2 Influenza Typ A,B (EIA) Negative for flu a/b
[2017-07-01] MEDS ORDERED: Albuterol-Ipratrop 3 mg / 0.5 (3 ml) UD INH STA (17:48)
[2017-07-01] MEDS ORDERED: Albuterol-Ipratrop 3 mg / 0.5 (3 ml) UD ONE (18:15)
[2017-07-01 18:38] LABS: BASO # 0.1 K/uL (0.0-0.2); BASO % 0.9 % (0.0-2.0); EOS # 0.3 K/uL (0.0-0.7); EOS % 2.8 % (0.0-4.0); HEMATOCRIT 38.1 % (34.0-47.0); LYMPH # 2.1 K/uL (1.0-4.3); LYMPH % 23.1 % (20.0-40.0); MEAN CELL VOLUME 88.3 fl (81.0-99.0); MEAN CORPUSCULAR HEMOGLOBIN 28.7 pg (27.0-31.0); MEAN CORPUSCULAR HGB CONC 32.5 g/dL (33.0-37.0); MEAN PLATELET VOLUME 10.1 fl (7.2-11.7); MONO # 0.5 K/uL (0.0-0.8); MONO % 5.4 % (0.0-10.0); NEUT # 6.3 K/uL (1.8-7.0); NEUT % 67.8 % (50.0-75.0); NRBC % 0.1 % (0.0-0.0); RED CELL DISTRIBUTION WIDTH 14.9 % (11.5-14.5); WHITE BLOOD COUNT 9.3 K/uL (4.8-10.8)
[2017-07-01 18:50] LABS: ALB/GLOB RATIO 1.2 (1.0-2.1); ALKALINE PHOSPHATASE 58 U/L (38-126); ALT/SGPT 25 U/L (9-52); AST/SGOT 21 U/L (14-36); BILIRUBIN,TOTAL 0.5 mg/dl (0.2-1.3); BLOOD UREA NITROGEN 27 mg/dl (7-17); CALCIUM 9.5 mg/dL (8.4-10.2); CARBON DIOXIDE 24 mmol/L (22-30); CHLORIDE 104 mmol/L (98-107); GFR AFRICAN-AMERICAN 56; GLUCOSE,RANDOM 134 mg/dL (65-105); POTASSIUM 4.2 MMOL/L (3.6-5.0); SODIUM 141 mmol/l (132-148)
--- NOTE | 2017-07-02 08:55 | RAD ---
HISTORY: cough COMPARISON: 03/21/2017 FINDINGS: LUNGS: No active pulmonary disease. PLEURA: No significant pleural effusion identified, no pneumothorax apparent. CARDIOVASCULAR: Normal. OSSEOUS STRUCTURES: No significant abnormalities. VISUALIZED UPPER ABDOMEN: Normal. OTHER FINDINGS: None. IMPRESSION: No active disease.
== END 2017-07-01 19:50 | disposition home or self-care (01) ==
LOC: H.ER 17:00
DX: J45.901 Unspecified asthma with (acute) exacerbation (principal); E03.9 Hypothyroidism, unspecified; E11.9 Type 2 diabetes mellitus without complications; E78.00 Pure hypercholesterolemia, unspecified; I10 Essential (primary) hypertension; M81.0 Age-related osteoporosis without current pathological fracture; Z79.4 Long term (current) use of insulin; Z79.82 Long term (current) use of aspirin; Z88.0 Allergy status to penicillin; R06.02 Shortness of breath; R05 Cough
CPT/HCPCS: 71010; 80053; 84484; 85025; 87804; 94640; 96374; 99284; J2930

== ENCOUNTER 2017-08-08 19:09 | Observation (INO) | payer MEDICARE, OTHER ==
[2017-08-08 19:09] VITALS: BMI 40.8
[2017-08-08] MEDS ORDERED: Barium Sulfate Susp 2.1% w/v, 2.0% w/w 450 mL Bottle PO ONE ×3 (19:53)
[2017-08-08] MEDS ORDERED: Morphine 4 MG/ML VIAL ONE (20:16)
[2017-08-08] MEDS ORDERED: Sterile Water 10 ML IV ONE (20:16)
[2017-08-08 20:19] LABS: BASO # 0.1 K/uL (0.0-0.2); BASO % 1.3 % (0.0-2.0); EOS # 0.3 K/uL (0.0-0.7); EOS % 2.4 % (0.0-4.0); LYMPH # 2.7 K/uL (1.0-4.3); MEAN CELL VOLUME 87.6 fl (81.0-99.0); MEAN CORPUSCULAR HEMOGLOBIN 28.5 pg (27.0-31.0); MEAN CORPUSCULAR HGB CONC 32.5 g/dL (33.0-37.0); MEAN PLATELET VOLUME 9.9 fl (7.2-11.7); MONO # 0.6 K/uL (0.0-0.8); MONO % 5.6 % (0.0-10.0); NEUT # 7.4 K/uL (1.8-7.0); NEUT % 66.7 % (50.0-75.0); NRBC % 0.1 % (0.0-0.0); RBC 4.21 Mil/uL (3.80-5.20); RED CELL DISTRIBUTION WIDTH 14.6 % (11.5-14.5)
[2017-08-08 20:32] LABS: INR 0.9 (0.9-1.2); PARTIAL THROMBOPLASTIN TIME 28.9 Seconds (25.6-37.1); PROTHROMBIN TIME 10.3 Seconds (9.8-13.1)
[2017-08-08 20:56] LABS: CALCIUM 9.7 mg/dL (8.4-10.2)
[2017-08-08 20:57] LABS: ALB/GLOB RATIO 1.2 (1.0-2.1); ALBUMIN 4.3 g/dL (3.5-5.0); MAGNESIUM 2.2 MG/DL (1.6-2.3)
--- NOTE | 2017-08-08 21:18 | ED PDOC ---
HPI: Abdomen Time Seen by Provider: 08/08/17 19:23 Chief Complaint (Nursing): Abdominal Pain Chief Complaint (Provider): Abdominal Pain History Per: Patient History/Exam Limitations: no limitations Onset/Duration Of Symptoms: Days (x3) Current Symptoms Are (Timing): Still Present Associated Symptoms: Nausea, Vomiting Additional Complaint(s): 57 year old female with a past medical history of hypertension and diabetes, presents to the ER complaining of abdominal pain, onset night (08/06/17 ). Pain is right-sided and radiating to rest of the abdomen, associated with intractable vomiting (non-bilious, non-bloody). Initially she had constipation, but gave herself an enema with stool production, but no relief of abdominal pain. Denies any dysuria, frequency, or incontinence. Patient had a pervious episode of similar pain that ended up being diagnosed as a obstruction due to previous hernia repair (mesh). PMD: Dr. De Anda Past Medical History Reviewed: Historical Data, Nursing Documentation, Vital Signs Vital Signs: Last Vital Signs Temp 97.5 F L 08/08/17 19:11 Pulse 78 08/08/17 23:21 Resp 18 08/08/17 23:21 BP 104/49 L 08/08/17 23:21 Pulse Ox 98 08/08/17 23:58 - Medical History PMH: Arthritis, Asthma, Back Problems, Diabetes, HTN, Hypercholesterolemia, Hypothyroidism, Osteoporosis, Sleep Apnea (USES C-PAP OCCASSIONALLY) - Surgical History Surgical History: Hernia Repair (ventral) - Family History Family History: States: Hypertension - Social History Current smoker - smoking cessation education provided: No Alcohol: None Drugs: Denies - Home Medications Home Medications: Ambulatory Orders Medication Instructions Recorded Aclidinium [place] [Tudorza 1 puff INH Q12 08/27/16 Pressair] Albuterol HFA [Ventolin HFA 90 2 puff INH Q4 PRN 08/27/16 mcg/actuation (8 g)] Aspirin [Lo-Dose Aspirin EC] 81 mg PO DAILY 08/27/16 Cilostazol [Pletal] 100 mg PO BID 08/27/16 DiphenhydrAMINE [Benadryl] 25 mg PO Q12 08/27/16 Glimepiride [Amaryl] 4 mg pe PO BID 08/27/16 Lisinopril/Hydrochlorothiazide 1 tab PO DAILY 08/27/16 [Lisinopril-Hctz 20-25 mg Tab] Lovastatin [Altoprev] 40 mg PO DAILY 08/27/16 Metoprolol Tartrate 25 mg PO DAILY 08/27/16 Montelukast Sodium [Singulair] 10 mg PO DAILY 08/27/16 Omeprazole 40 mg PO DAILY 08/27/16 Levalbuterol [Xopenex] 0.63 mg IH RQ8 #60 neb 09/01/16 Dicyclomine [Dicyclomine HCl] 10 mg PO TID PRN #12 12/03/16 Azithromycin 250 mg PO DAILY 01/22/17 Clotrimazole 1% [Lotrimin AF 1%] 1 appl TOP BID 01/22/17 Clotrimazole/Betamethasone 1 appl TOP BID 01/22/17 [Lotrisone] Empagliflozin [Jardiance] 25 mg PO DAILY 01/22/17 Ergocalciferol (Vitamin D2) 50,000 iu PO QWK 01/22/17 [Vitamin D2] Insulin Glargine, Recombina 10 unit SUBCUT BID 01/22/17 [Lantus] Ketoconazole 2% Cr [Nizoral] 1 appl TOP BID 01/22/17 MetFORMIN [glucoPHAGE] 1,000 mg PO BID 01/22/17 Metoclopramide [Reglan] 5 mg PO TID 01/22/17 Naproxen [Naprosyn] 500 mg PO Q12H #20 tab 03/21/17 traMADol [Ultram] 50 mg PO Q8 #10 tab 03/21/17 Albuterol HFA [Ventolin HFA 90 1 puff IH Q6 PRN #1 inhaler 07/01/17 mcg/actuation (8 g)] Azithromycin [Zithromax] 250 mg PO DAILY #6 tab 07/01/17 Benzonatate 200 mg PO TID PRN #20 capsule 07/01/17 predniSONE [Prednisone] 20 mg PO BID #10 tab 07/01/17 - Allergies Allergies/Adverse Reactions: Allergies Allergy/AdvReac Type Severity Reaction Status Date / Time iodine Allergy RASH Verified 01/22/17 07:40 Penicillins Allergy RASH Verified 01/22/17 07:40 Review of Systems ROS Statement: Except As Marked, All Systems Reviewed And Found Negative (as per HPI, otherwise negative) Constitutional: Negative for: Fever Gastrointestinal: Positive for: Nausea, Vomiting, Abdominal Pain. Negative for : Diarrhea, Constipation (now resolved) Genitourinary Female: Negative for: Dysuria, Frequency, Incontinence Physical Exam - Reviewed Nursing Documentation Reviewed: Yes Vital Signs Reviewed: Yes - Physical Exam Appears: Positive for: Non-toxic, Uncomfortable, In Acute Distress Head Exam: Positive for: ATRAUMATIC, NORMOCEPHALIC Skin: Positive for: Warm, Dry Eye Exam: Positive for: EOMI, PERRL ENT: Positive for: Other (dry mucus membranes) Neck: Positive for: Painless ROM, Supple Cardiovascular/Chest: Positive for: Regular Rate, Rhythm, Chest Non Tender. Negative for: Murmur Respiratory: Positive for: Normal Breath Sounds. Negative for: Wheezing Gastrointestinal/Abdominal: Positive for: Soft, Tenderness (diffuse), Distended. Negative for: Mass, Guarding, Rebound Back: Positive for: Normal Inspection. Negative for: Decreased ROM Extremity: Positive for: Normal ROM. Negative for: Deformity Lymphatic: Negative for: Adenopathy Neurologic/Psych: Positive for: Alert. Negative for: Motor/Sensory Deficits - Laboratory Results Result Diagrams: 08/08/17 20:13 08/08/17 20:13 - ECG ECG: Positive for: Interpreted By Me ECG Rhythm: Positive for: Normal QRS, Normal ST Segment, Sinus Rhythm O2 Sat by Pulse Oximetry: 98 (RA) Pulse Ox Interpretation: Normal Medical Decision Making Medical Decision Making: Initial Impression: Abdominal Pain Differential includes but is not limited to: obstruction, colitis, diverticulitis, appendicitis Time: 19:47 Initial Plan: --Blood culture --Occult blood, stool --Blood type and screen --CMP --Lactic acid --Lipase --Magnesium --Phosphorous --CBC w/ differential --PTT --Prothrombin time --EKG --Urine dipstick --Morphine 4 mg IVP --Protonix 40 mg IVP --Zofran 8 mg IV --CT Abd/Pelvis with PO contrast --Reevaluation Mildly elevated lipase, mild leukocytosis, mild renal insufficiency, elevated lactic acid. EXAM: CT Abdomen and Pelvis Without Contrast CLINICAL HISTORY: 57 years old, female; Pain; Abdominal pain; Generalized; Prior surgery; Surgery date: 6+ months; Surgery type: Hernia repair; Additional info: Abd pain TECHNIQUE: Axial computed tomography images of the abdomen and pelvis without contrast. All CT scans at this facility use one or more dose reduction techniques, viz.: automated exposure control; ma/kV adjustment per patient size (including targeted exams where dose is matched to indication; i.e. head); or iterative reconstruction technique. Coronal and sagittal reformatted images were created and reviewed. COMPARISON: CT - ABD PELVIS W/O PO OR IV CONT 2016-12-03 12:01 FINDINGS: Lower thorax: No acute findings. ABDOMEN: Liver: Prominent in size. Gallbladder and bile ducts: No acute abnormality as visualized. Ultrasound can provide more sensitive evaluation of the biliary system as warranted. Pancreas: No acute abnormality as visualized. Spleen: No splenomegaly. Adrenals: No acute abnormality as visualized. Kidneys and ureters: No obstructing calculus. No hydronephrosis. Stomach and bowel: Small hiatal hernia. No bowel obstruction. Colonic diverticula. Retained fecal material in the colon. Appendix: No findings to suggest acute appendicitis. PELVIS: Bladder: Bladder physiologically collapsed, limited evaluation. Reproductive: No acute abnormality as visualized. ABDOMEN and PELVIS: Intraperitoneal space: No free air. No significant fluid collection. Bones: Mild degenerative changes. Soft tissues: Mesh along anterior abdominal wall. 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 Atherosclerosis. No abdominal aortic aneurysm. Lymph nodes: Shotty nodes. Please note evaluation for underlying visceral lesions/abnormalities limited without intravenous contrast. IMPRESSION: Retained fecal material in the colon. Correlate for constipation. Small hiatal hernia. Colonic diverticula. Liver prominent in size. 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 Additional details/findings as above. Correlate clinically. Followup as warranted. Thank you for allowing us to participate in the care of your patient. Dictated and Authenticated by: Mary Lou Prather MD 08/08/2017 11:55 PM Eastern Time ([place] & [place]) On reeval pt is still having pain as well as nausea. Will hospitalize for intractable and undifferentiated abdominal pain. Scribe Attestation: Documented by Carla Akers, acting as a scribe for Vicki Dolan MD Provider Scribe Attestation: All medical record entries made by the Scribe were at my direction and personally dictated by me. I have reviewed the chart and agree that the record accurately reflects my personal performance of the history, physical exam, medical decision making, and the department course for this patient. I have also personally directed, reviewed, and agree with the discharge instructions and disposition. Disposition - Clinical Impression Clinical Impression: Intractable abdominal pain, Undifferentiated abdominal pain Discussed With Dr.: Grupo De Anda Doctor Will See Patient In The: Hospital Counseled Patient/Family Regarding: Studies Performed, Diagnosis - Disposition Disposition Time: 00:08 Condition: FAIR - Pt Status Changed To: Hospital Disposition Of: Observation - POA Present On Arrival: Poor Glycemic Control
[2017-08-08] MEDS ORDERED: Sodium Chloride 0.9% 1,000 ML IV STA (21:34)
--- NOTE | 2017-08-08 23:55 | CT ---
EXAM: CT Abdomen and Pelvis Without Contrast CLINICAL HISTORY: 57 years old, female; Pain; Abdominal pain; Generalized; Prior surgery; Surgery date: 6+ months; Surgery type: Hernia repair; Additional info: Abd pain TECHNIQUE: Axial computed tomography images of the abdomen and pelvis without contrast. All CT scans at this facility use one or more dose reduction techniques, viz.: automated exposure control; ma/kV adjustment per patient size (including targeted exams where dose is matched to indication; i.e. head); or iterative reconstruction technique. Coronal and sagittal reformatted images were created and reviewed. COMPARISON: CT - ABD PELVIS W/O PO OR IV CONT 2016-12-03 12:01 FINDINGS: Lower thorax: No acute findings. ABDOMEN: Liver: Prominent in size. Gallbladder and bile ducts: No acute abnormality as visualized. Ultrasound can provide more sensitive evaluation of the biliary system as warranted. Pancreas: No acute abnormality as visualized. Spleen: No splenomegaly. Adrenals: No acute abnormality as visualized. Kidneys and ureters: No obstructing calculus. No hydronephrosis. Stomach and bowel: Small hiatal hernia. No bowel obstruction. Colonic diverticula. Retained fecal material in the colon. Appendix: No findings to suggest acute appendicitis. PELVIS: Bladder: Bladder physiologically collapsed, limited evaluation. Reproductive: No acute abnormality as visualized. ABDOMEN and PELVIS: Intraperitoneal space: No free air. No significant fluid collection. Bones: Mild degenerative changes. Soft tissues: Mesh along anterior abdominal wall. 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 Atherosclerosis. No abdominal aortic aneurysm. Lymph nodes: Shotty nodes. Please note evaluation for underlying visceral lesions/abnormalities limited without intravenous contrast. IMPRESSION: Retained fecal material in the colon. Correlate for constipation. Small hiatal hernia. Colonic diverticula. Liver prominent in size. 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 Additional details/findings as above. Correlate clinically. Followup as warranted.
[2017-08-09] MEDS ORDERED: Sodium Chloride 0.9% 1,000 ML IV SCH (07:45)
[2017-08-09] MEDS ORDERED: Albuterol HFA 90 mcg/actuation (8 g) INH PRN (07:47)
[2017-08-09 08:12] LABS: HEMOGLOBIN 11.5 g/dL (12.0-16.0); MEAN CELL VOLUME 87.8 fl (81.0-99.0); MEAN CORPUSCULAR HEMOGLOBIN 28.4 pg (27.0-31.0); MEAN CORPUSCULAR HGB CONC 32.4 g/dL (33.0-37.0); RBC 4.03 Mil/uL (3.80-5.20); RED CELL DISTRIBUTION WIDTH 14.9 % (11.5-14.5); WHITE BLOOD COUNT 11.4 K/uL (4.8-10.8)
[2017-08-09 08:28] LABS: ALB/GLOB RATIO 1.1 (1.0-2.1); ALBUMIN 3.7 g/dL (3.5-5.0); ALT/SGPT 30 U/L (9-52); AST/SGOT 13 U/L (14-36); BLOOD UREA NITROGEN 20 mg/dl (7-17); CALCIUM 9.1 mg/dL (8.4-10.2); GFR AFRICAN-AMERICAN > 60; GFR NON-AFRICAN AMERICAN 51; LIPASE 162 U/L (23-300)
[2017-08-09] MEDS: Pantoprazole 40 mg EC Tab PO SCH (08:53)
--- NOTE | 2017-08-09 08:55 | RAD ---
HISTORY: CHEST PAIN COMPARISON: Chest radiograph dated 07/01/2017 FINDINGS: LUNGS: No active pulmonary disease. PLEURA: No significant pleural effusion identified, no pneumothorax apparent. CARDIOVASCULAR: Cardiomediastinal silhouette unchanged. OSSEOUS STRUCTURES: Unchanged. VISUALIZED UPPER ABDOMEN: Normal. OTHER FINDINGS: None. IMPRESSION: No active disease.
[2017-08-09] MEDS ORDERED: Pneumococcal 23-Valent Vaccine IM ONE (10:00)
[2017-08-09] MEDS ORDERED: Insulin Regular 100 units/ml SC SCH (11:30)
--- NOTE | 2017-08-09 11:54 | PCM.RRT ---
SUPERVISORY EXAMINER Nurse Assessment - Situation Location: [address] [place] [address] Room Number: 656-2 SUPERVISORY EXAMINER Reason for Call: Looks Sicker SUPERVISORY EXAMINER Called By: RN - IV IV Inserted during SUPERVISORY EXAMINER?: No - Respiratory Oxygen Delivery Method: Room Air - Ventilator Settings Peak Flow: 170 - Diagnostic Test Ordered EKG: No Chest X-Ray: No CT Scan: No CPR started during SUPERVISORY EXAMINER?: No - Vital Signs Vital Signs: Rapid Response Vital Sign Blood Pressure 159/85 Pulse Rate 96 Respiratory Rate 22 Temperature 98.3 F Oxygen Saturation 98 - Time SUPERVISORY EXAMINER Ended Time SUPERVISORY EXAMINER Ended: 11:20 - Vital Signs at end of SUPERVISORY EXAMINER Vital Signs at end of SUPERVISORY EXAMINER: Rapid Response End Vital Sign Blood Pressure 159/85 Pulse Rate 93 Respiratory Rate 18 Temperature 98.4 F O2 Sat by Pulse Oximetry 99 - Recommendations SUPERVISORY EXAMINER Level of Care Recommendations: Remain in current setting I.Reason for SUPERVISORY EXAMINER - A) Acute Change in Patient: Subjective: 57 yo F with PMH hypertension, diabetes, past surg hx hernia repairs, SUPERVISORY EXAMINER called for abdominal pain. S: On arrival, 57 yo F, appears stated age, in acute distress, crying, due to abdominal pain. States the pain is the same as the pain she was admitted with. In ED, had received pain medication. Pt responsive, speaking, laying flat on the bed. O: Vital signs BP 159/85 mmHg, HR 98 bpm, SpO2 97%, T 98.1F Abdomen soft, exam limited by body habitus but did not appear distended, no rebound, no rigidity. During SUPERVISORY EXAMINER, 30mg IV toradol was given. Pt verbalized marked relief of pain and stopped crying several minutes after medication. Vitals at end of SUPERVISORY EXAMINER: BP 143/66 mmHg, HR 93, SpO2 99%, T 98.4F Assessment: 57 yo F with pmh hypertension, diabetes, past abdominal surgeries, had SUPERVISORY EXAMINER called for abdominal pain. Plan: 30 mg IV toradol- given during SUPERVISORY EXAMINER Flat Plate Abdominal X-ray stat 30 mg IV toradol Q6 PRN PMD Dr. De Anda to be made aware. Discussed with hospitalist Dr. Romero, who was present at SUPERVISORY EXAMINER.
[2017-08-09] MEDS: Fluticasone-Salmeterol 500-50mcg Diskus INH SCH (13:17)
[2017-08-09] MEDS: Insulin Lispro (humaLOG) 100 Units/ml Inj SC SCH ×3 (13:18→22:08)
[2017-08-09] MEDS: Levothyroxine 100 MCG TAB PO SCH (13:21)
[2017-08-09] MEDS: Metoprolol Succinate 50 mg XL Tab PO SCH (13:22)
[2017-08-09] MEDS: GlipiZIDE 10 mg SR Tab PO SCH ×2 (13:25→18:43)
--- NOTE | 2017-08-09 14:23 | RAD ---
HISTORY: FITNESS SPECIALIST, pain COMPARISON: CT scan of the abdomen pelvis performed 08/08/2017. FINDINGS: Retained enteric contrast from recent CT scan seen in the colon. Calcified renal artery aneurysm again seen in the left upper quadrant. IMPRESSION: Findings as above.
--- NOTE | 2017-08-10 04:03 | HP ---
HISTORY OF PRESENT ILLNESS: Patient is a 57-year-old female with history of multiple medical problems, presented to emergency room with symptoms of back pain and abdominal pain. Patient was evaluated in the emergency room and she was found to have mildly elevated lipase as well as history of constipation. Patient was evaluated. She had a CAT scan done and admitted for further management. REVIEW OF SYSTEMS: Other review of system is negative. ALLERGIES: NO KNOWN ALLERGY. MEDICATIONS: As per MAR. PAST MEDICAL HISTORY: Hypertension, type 2 diabetes mellitus, hypercholesterolemia. SOCIAL HISTORY: No history of smoking, EtOH or substance abuse. FAMILY HISTORY: Noncontributory. PHYSICAL EXAMINATION: GENERAL: Patient is in bed, comfortable, not in any cardiopulmonary distress. VITAL SIGNS: Blood pressure 91/56, temperature 98.1, respiratory rate 20 and pulse 75. HEENT: Pupils equal, reactive to light. Normal-appearing mucosa of the conjunctivae, oropharynx and nasal membrane mucosa. NECK: Supple. No JVD. No carotid bruit. No lymph node. No thyromegaly. CHEST AND LUNGS: Bilateral symmetrical expansion. Good air exchange. No rales, no rhonchi. CARDIOVASCULAR SYSTEM: PMI not localized. S1, S2. No additional sounds. ABDOMEN: Normoactive bowel sounds. No tenderness. No organomegaly. No masses. EXTREMITIES: No cyanosis, no clubbing or edema. CENTRAL NERVOUS SYSTEM: Alert, awake, oriented x3. No neurological deficit could be appreciated. ASSESSMENT: 1. Right-sided abdominal pain referred from the back, likely secondary to degenerative spine disease. 2. Hypertension. 3. Type 2 diabetes mellitus. 4. History of bronchial asthma, which is currently controlled on current medications. PLAN: We will give the patient Toradol for pain and do abdominal ultrasound, advance diet. Grupo De Anda MD
[2017-08-10] MEDS: Levothyroxine 100 MCG TAB PO SCH (06:41)
[2017-08-10 08:01] VITALS: BP 144/77; PULSE 66; RESP 20; TEMP 98.3; O2SAT 99
[2017-08-10] MEDS ORDERED: Lidocaine 5% Patch TD SCH (09:00)
[2017-08-10] MEDS: Fluticasone-Salmeterol 500-50mcg Diskus INH SCH (09:26)
[2017-08-10] MEDS: Insulin Lispro (humaLOG) 100 Units/ml Inj SC SCH ×2 (09:27→12:57)
[2017-08-10] MEDS: Metoprolol Succinate 50 mg XL Tab PO SCH (09:29)
[2017-08-10] MEDS: Pantoprazole 40 mg EC Tab PO SCH (09:31)
[2017-08-10] MEDS: GlipiZIDE 10 mg SR Tab PO SCH (10:55)
--- NOTE | 2017-08-10 11:20 | US ---
HISTORY: R/O galstones COMPARISON: None. TECHNIQUE: Sonographic evaluation of the right upper quadrant of the abdomen. FINDINGS: LIVER: Measures 16.9 cm in length. Diffusely increased echogenicity of the liver parenchyma. No mass. No intrahepatic bile duct dilatation. GALLBLADDER: Unremarkable. No gallstones. COMMON BILE DUCT: Measures 3.5 mm. No stones. No dilatation. PANCREAS: The tail of the pancreas is obscured by overlying bowel gas with remainder unremarkable. Pancreatic duct is identified up to 2 mm caliber which is within normal limits. RIGHT KIDNEY: Measures 9.6 cm in length. Normal echogenicity. No calculus, mass, or hydronephrosis. AORTA: No aneurysmal dilatation. IVC: Unremarkable. OTHER FINDINGS: None . IMPRESSION: Hepatic steatosis is identified diffusely. There is partial imaging of the pancreas with pancreatic duct identified up to 2.0 mm greatest transverse dimension. Normal common bile duct caliber and no cholelithiasis identified in the gallbladder.
[2017-08-10 11:38] LABS: HEMOGLOBIN 10.8 g/dL (12.0-16.0); MEAN CELL VOLUME 87.6 fl (81.0-99.0); MEAN CORPUSCULAR HEMOGLOBIN 29.3 pg (27.0-31.0); MEAN CORPUSCULAR HGB CONC 33.5 g/dL (33.0-37.0); RBC 3.7 Mil/uL (3.80-5.20); RED CELL DISTRIBUTION WIDTH 14.7 % (11.5-14.5); WHITE BLOOD COUNT 9.9 K/uL (4.8-10.8)
--- NOTE | 2017-08-11 03:46 | DS ---
REASON FOR ADMISSION: This is a 57-year-old female with history of multiple medical problems, was admitted for abdominal pain. COURSE OF HOSPITALIZATION: Patient was admitted to medical floor and she had a CAT scan and ultrasound that did not show any significant abnormalities. The patient has been suffering of degenerative spine disease and pain was believed to be radiated from the spine. Patient was treated with NSAIDs and pain was improving. The patient was discharged home to follow up with a spine surgeon that she has been following and he did spine injections before. FINAL DIAGNOSES: 1. Degenerative spine disease with radicular pain in the anterior abdominal wall. 2. Type 2 diabetes mellitus. 3. Hypertension. 4. Hypercholesterolemia. [facility] MD Adilson
--- NOTE | 2017-08-12 08:03 | CARD ---
APPROVED REPORT EKG Measurement Heart [id number] <Conclusion> Normal sinus rhythm Normal ECG baseline artefact
== END 2017-08-10 15:10 | disposition home or self-care (01) ==
LOC: H.ER 19:09 → H.ERHOLD 08-09 00:09 → H.MEDSURG1 08-09 02:16
PROVIDERS: ADMIT Internal Medicine; ATTEND Internal Medicine
DX: G31.89 Other specified degenerative diseases of nervous system (principal); R10.84 Generalized abdominal pain; E11.9 Type 2 diabetes mellitus without complications; E78.00 Pure hypercholesterolemia, unspecified; E03.9 Hypothyroidism, unspecified; G47.30 Sleep apnea, unspecified; I10 Essential (primary) hypertension; I72.2 Aneurysm of renal artery; J45.909 Unspecified asthma, uncomplicated; K44.9 Diaphragmatic hernia without obstruction or gangrene; K57.30 Diverticulosis of large intestine without perforation or abscess without bleeding; K59.00 Constipation, unspecified; M54.10 Radiculopathy, site unspecified; M81.0 Age-related osteoporosis without current pathological fracture; Z79.82 Long term (current) use of aspirin; Z79.899 Other long term (current) drug therapy; M19.90 Unspecified osteoarthritis, unspecified site; Z79.84 Long term (current) use of oral hypoglycemic drugs; R74.8 Abnormal levels of other serum enzymes; Z23 Encounter for immunization
CPT/HCPCS: 36415; 71045; 74018; 74176; 76705; 80048; 80053; 82948; 83605; 83690; 83735; 84100; 85025; 85027; 85610; 85730; 86850; 86900; 87040; 90732; 96361; 96372; 96374; 96375; 96376; 99282; C9113; G0009; G0328; G0378; J1885; J2270; J2405; J7040

== ENCOUNTER 2017-12-15 18:21 | Emergency (ER) | payer MEDICARE, OTHER ==
[2017-12-15 18:21] VITALS: BMI 40.8
[2017-12-15] MEDS ORDERED: Sodium Chloride 0.9% 1,000 ML IV STA (19:44)
--- NOTE | 2017-12-15 19:53 | ED PDOC ---
HPI: Abdomen Chief Complaint (Nursing): Chest Pain History Per: Patient History/Exam Limitations: no limitations Onset/Duration Of Symptoms: Days Current Symptoms Are (Timing): Still Present Location Of Pain/Discomfort: Diffuse Associated Symptoms: Nausea, Vomiting, Constipation, Urinary Symptoms Additional Complaint(s): Hx of DM, HTN, HLD, mult abdominal surgeries, hypothyroidism presenting with abdominal pain and chest pain, states that she has had diffuse abdominal pain x 2 days, states she had an endoscopy last year that showed a hernia and she believes the pain is due to that. States the pain is worse on the R side compared to the L, cramping and burning. States she feels nausea and has small amount of vomiting, also having difficulty producing bowel movement, states she has been having to use enemas. Also with urinary symptoms- states burning and hematuria. Also states she's having chest pain with coughing, believes she might have "bronchitis." Denies fevers, chills. Past Medical History Reviewed: Historical Data, Nursing Documentation, Vital Signs Vital Signs: Last Vital Signs Temp 98.0 F 12/15/17 18:25 Pulse 53 L 12/15/17 21:35 Resp 18 12/15/17 21:35 BP 133/72 12/15/17 21:35 Pulse Ox 94 L 12/15/17 21:35 - Medical History PMH: Arthritis, Asthma, Back Problems, Diabetes, HTN, Hypercholesterolemia, Hypothyroidism, Osteoporosis, Sleep Apnea (USES C-PAP OCCASSIONALLY) Denies: HIV, Chronic Kidney Disease - Surgical History Surgical History: Hernia Repair (ventral) - Family History Family History: States: Hypertension - Home Medications Home Medications: Ambulatory Orders Medication Instructions Recorded Albuterol HFA [Ventolin HFA 90 90 mcg INH PRN PRN 08/09/17 mcg/actuation (8 g)] Aspirin [Aspirin Chewable] 81 mg PO DAILY 08/09/17 Fluticasone/Salmeterol 500/50 1 puff INH DAILY 08/09/17 [Advair Diskus 500/50] Glimepiride [amaRYL] 4 mg PO BID 08/09/17 Levothyroxine [Synthroid] 100 mcg PO DAILY 08/09/17 Lisinopril/Hydrochlorothiazide 1 tab PO DAILY 08/09/17 [Lisinopril-Hctz 20-25 mg Tab] Lovastatin 40 mg BLADIN DAILY 08/09/17 Metoprolol Succinate [Toprol XL] 50 mg PO DAILY 08/09/17 Omeprazole 40 mg PO DAILY 08/09/17 Prednisone [Deltasone] 20 mg PO DAILY 08/09/17 Dicyclomine [Bentyl] 20 mg PO BID #30 tab 12/16/17 Nitrofurantoin Macrocrystals 100 mg PO BID 5 Days cap 12/16/17 [Macrobid] - Allergies Allergies/Adverse Reactions: Allergies Allergy/AdvReac Type Severity Reaction Status Date / Time iodine Allergy RASH Verified 12/15/17 18:25 Penicillins Allergy RASH Verified 12/15/17 18:25 Review of Systems ROS Statement: Except As Marked, All Systems Reviewed And Found Negative Cardiovascular: Positive for: Chest Pain Respiratory: Positive for: Cough Gastrointestinal: Positive for: Nausea, Vomiting, Abdominal Pain, Constipation Genitourinary Female: Positive for: Dysuria, Hematuria Physical Exam - Reviewed Nursing Documentation Reviewed: Yes Vital Signs Reviewed: Yes - Physical Exam Appears: Positive for: Non-toxic, No Acute Distress, Uncomfortable Head Exam: Positive for: ATRAUMATIC, NORMAL INSPECTION, NORMOCEPHALIC Skin: Positive for: Normal Color, Warm, DRY Eye Exam: Positive for: EOMI, Normal appearance, PERRL ENT: Positive for: Normal ENT Inspection Neck: Positive for: Normal, Painless ROM Cardiovascular/Chest: Positive for: Regular Rate, Rhythm Respiratory: Positive for: CNT, Normal Breath Sounds Gastrointestinal/Abdominal: Positive for: Bowel Sounds, Soft, Tenderness ( Diffusely tender abdomen, R>L). Negative for: Organomegaly, Mass, Distended, Guarding, Rebound Back: Positive for: Normal Inspection Extremity: Positive for: Normal ROM Neurologic/Psych: Positive for: Alert, Oriented - Laboratory Results Result Diagrams: 12/15/17 21:24 12/15/17 21:24 - ECG ECG: Positive for: Interpreted By Me, Viewed By Me ECG Rhythm: Positive for: Normal QRS, Normal ST Segment, Sinus Bradycardia O2 Sat by Pulse Oximetry: 98 Pulse Ox Interpretation: Normal Medical Decision Making Medical Decision MakinPM A/P: Hx of DM, HTN, HLD, hypothyroidism, mult surgeries presenting with abdominal pain and chest pain -possibly due to hernia, sbo, gerd, colitis, uti, or other intra-abdominal pathology -chest pain may be due to gerd, hernia, less likely acs, pna, uri -will get labs, cxr, CT without IV contrast given allergy 200AM EXAM: CT Abdomen and Pelvis With Intravenous Contrast CLINICAL HISTORY: 57 years old, female; Pain; Abdominal pain; Generalized; Prior surgery; Surgery date: 6+ months; Surgery type: Hysterectomy. Abdominal hernia; Additional info: Mult abd surgeries, abd pain TECHNIQUE: Axial computed tomography images of the abdomen and pelvis with intravenous contrast. All CT scans at this facility use one or more dose reduction techniques, viz.: automated exposure control; ma/kV adjustment per patient size (including targeted exams where dose is matched to indication; i.e. head); or iterative reconstruction technique. Coronal and sagittal reformatted images were created and reviewed. COMPARISON: CT - ABD PELVIS PO CONTRAST ONLY 2017-08-08 22:56 FINDINGS: Limitations: Lack of intravenous contrast. Lung bases: No acute findings. Mediastinum: Probable small hiatal hernia. ABDOMEN: Liver: Unremarkable. No mass. Gallbladder and bile ducts: No calcified stones. No ductal dilation. Pancreas: No ductal dilation. No mass. Spleen: No splenomegaly. Adrenals: No mass. Kidneys and ureters: No renal calculi. No hydronephrosis. Stomach and bowel: Scattered diverticula within colon. No associated inflammatory stranding. No definite mural thickening. No obstruction. PELVIS: Appendix: Normal caliber. No inflammation. Bladder: Borderline bladder wall thickening, 4-5 mm. Incomplete distention, limiting evaluation. Reproductive: Hysterectomy. CABDOMEN and PELVIS: Intraperitoneal space: No significant fluid collection. No free air. YUSEF PEGUERO | Final Radiology Report CONFIDENTIALITY STATEMENT This report is intended only for use by the referring physician, and only in accordance with law. If you received this in error, call [phone]. Page 2 of 2 Bones/joints: Mild degenerative changes of spine. No acute fracture. Soft tissues: Postsurgical changes of anterior abdominal wall. Partial atrophy of visualized musculature. 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 Mild atherosclerotic disease. Lymph nodes: No pathologically enlarged lymph nodes. Other findings: Minimal interlobular septal thickening, nonspecific. IMPRESSION: 1. Diverticulosis without definite CT evidence of diverticulitis. 2. Mild cystitis vs underdistention. Correlate with urinalysis. 3. Incidental/non-acute findings are described above. Thank you for allowing us to participate in the care of your patient. Dictated and Authenticated by: Dariel Thapa MD 12/16/2017 12:26 AM Eastern Time ([place] & [place]) Patient states chest pain is gone after PPI. States she has mild pain in R side of abdomen, but significantly improved from before. CXR does not show PNA. Patient has UTI. Aware of diverticulosis from prior endoscopy. Patient states that she will be able to followup with Dr. De Anda today. Patient well appearing, vitals improved, return precautions given. Will d/c home. Disposition - Clinical Impression Clinical Impression: UTI (urinary tract infection), Diverticulosis - Patient ED Disposition Is Patient to be Admitted: No - Disposition Referrals: Grupo De Anda MD [Primary Care Provider] - Disposition: Routine/Home Disposition Time: 02:09 Condition: STABLE Additional Instructions: As discussed, followup with Dr. De Anda today. Prescriptions: Dicyclomine [Bentyl] 20 mg PO BID #30 tab Nitrofurantoin Macrocrystals [Macrobid] 100 mg PO BID 5 Days cap Instructions: Urinary Tract Infection, Adult (DC), Diverticulosis, High Fiber Diet Forms: [facility] ([place])
[2017-12-15 21:28] LABS: BASO % 0.3 % (0.0-2.0); EOS # 0.3 K/uL (0.0-0.7); EOS % 4.2 % (0.0-4.0); HEMOGLOBIN 12.9 g/dL (12.0-16.0); LYMPH % 26.9 % (20.0-40.0); MEAN CELL VOLUME 84.8 fl (81.0-99.0); MEAN CORPUSCULAR HEMOGLOBIN 27.8 pg (27.0-31.0); MEAN CORPUSCULAR HGB CONC 32.8 g/dL (33.0-37.0); MEAN PLATELET VOLUME 10.1 fl (7.2-11.7); MONO # 0.5 K/uL (0.0-0.8); MONO % 6.2 % (0.0-10.0); NEUT # 4.7 K/uL (1.8-7.0); NEUT % 62.4 % (50.0-75.0); RBC 4.63 Mil/uL (3.80-5.20); RED CELL DISTRIBUTION WIDTH 15.5 % (11.5-14.5); WHITE BLOOD COUNT 7.5 K/uL (4.8-10.8)
[2017-12-15] MEDS ORDERED: Iohexol 240 (50 ml) PO ONE (21:31)
[2017-12-15] MEDS ORDERED: Iohexol 240 (50 ml) ONE (21:33)
[2017-12-15 21:34] LABS: SQUAMOUS EPITHIAL 1 /hpf (0-5); URINE BACTERIA RARE (<OCC); URINE BILIRUBIN NEGATIVE (NEGATIVE); URINE BLOOD NEGATIVE (NEGATIVE); URINE CLARITY CLEAR (Clear); URINE COLOR STRAW (YELLOW); URINE GLUCOSE (UA) >=500 mg/dL (Normal); URINE LEUKOCYTE ESTERASE SMALL Leu/uL (Negative); URINE PROTEIN NEGATIVE (NEGATIVE); URINE UROBILINOGEN 0.2-1.0 mg/dL (0.2-1.0)
[2017-12-15 21:39] LABS: ALBUMIN 3.7 g/dL (3.5-5.0); ALT/SGPT 30 U/L (9-52); AST/SGOT 20 U/L (14-36); BLOOD UREA NITROGEN 12 mg/dl (7-17); CALCIUM 9.4 mg/dL (8.4-10.2); GFR AFRICAN-AMERICAN > 60; GFR NON-AFRICAN AMERICAN > 60; LIPASE 88 U/L (23-300)
--- NOTE | 2017-12-16 00:27 | CT ---
EXAM: CT Abdomen and Pelvis With Intravenous Contrast CLINICAL HISTORY: 57 years old, female; Pain; Abdominal pain; Generalized; Prior surgery; Surgery date: 6+ months; Surgery type: Hysterectomy. Abdominal hernia; Additional info: Mult abd surgeries, abd pain TECHNIQUE: Axial computed tomography images of the abdomen and pelvis with intravenous contrast. All CT scans at this facility use one or more dose reduction techniques, viz.: automated exposure control; ma/kV adjustment per patient size (including targeted exams where dose is matched to indication; i.e. head); or iterative reconstruction technique. Coronal and sagittal reformatted images were created and reviewed. COMPARISON: CT - ABD PELVIS PO CONTRAST ONLY 2017-08-08 22:56 FINDINGS: Limitations: Lack of intravenous contrast. Lung bases: No acute findings. Mediastinum: Probable small hiatal hernia. ABDOMEN: Liver: Unremarkable. No mass. Gallbladder and bile ducts: No calcified stones. No ductal dilation. Pancreas: No ductal dilation. No mass. Spleen: No splenomegaly. Adrenals: No mass. Kidneys and ureters: No renal calculi. No hydronephrosis. Stomach and bowel: Scattered diverticula within colon. No associated inflammatory stranding. No definite mural thickening. No obstruction. PELVIS: Appendix: Normal caliber. No inflammation. Bladder: Borderline bladder wall thickening, 4-5 mm. Incomplete distention, limiting evaluation. Reproductive: Hysterectomy. ABDOMEN and PELVIS: Intraperitoneal space: No significant fluid collection. No free air. Bones/joints: Mild degenerative changes of spine. No acute fracture. Soft tissues: Postsurgical changes of anterior abdominal wall. Partial atrophy of visualized musculature. 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 Mild atherosclerotic disease. Lymph nodes: No pathologically enlarged lymph nodes. Other findings: Minimal interlobular septal thickening, nonspecific. IMPRESSION: 1. Diverticulosis without definite CT evidence of diverticulitis. 2. Mild cystitis vs underdistention. Correlate with urinalysis. 3. Incidental/non-acute findings are described above.
[2017-12-16 01:44] VITALS: RESP 18
--- NOTE | 2017-12-16 02:07 | RAD ---
EXAM: XR Chest, 1 View CLINICAL HISTORY: 57 years old, female; Pain; Chest pain; Additional info: Cp, abd pain TECHNIQUE: Frontal view of the chest. COMPARISON: CR - CHEST PORTABLE 2017-08-08 23:59 FINDINGS: Limitations: Radiographic technique - mild to moderate. Lungs: No consolidation. Pleural space: Cannot exclude small pleural effusions. No pneumothorax. Heart: Mild cardiomegaly. Mediastinum: Apparent mild prominence of central pulmonary vasculature. Bones/joints: No acute fracture. Tubes, lines and devices: Leads overlying chest. IMPRESSION: 1. Possible early pulmonary vascular congestion. Clinical correlation is needed.
[2017-12-16 02:35] VITALS: BP 142/63; PULSE 52; TEMP 98.2; O2SAT 95
== END 2017-12-16 02:40 | disposition home or self-care (01) ==
LOC: H.ER 18:21
DX: N39.0 Urinary tract infection, site not specified (principal); K57.90 Diverticulosis of intestine, part unspecified, without perforation or abscess without bleeding; Z90.710 Acquired absence of both cervix and uterus; Z88.0 Allergy status to penicillin; Z79.84 Long term (current) use of oral hypoglycemic drugs; Z79.82 Long term (current) use of aspirin; M81.0 Age-related osteoporosis without current pathological fracture; I10 Essential (primary) hypertension; J45.909 Unspecified asthma, uncomplicated; E11.9 Type 2 diabetes mellitus without complications
CPT/HCPCS: 71045; 74176; 80053; 81003; 82948; 83605; 83690; 84484; 85025; 87040; 87086; 96361; 96374; 96375; 99285; C9113; J1885; J2270; J2765; J7040; Q9966